=== PATIENT | male | born 1970 | race Hispanic/Latino ===

== ENCOUNTER 2021-01-13 09:57 | Emergency (ER) | payer OTHER ==
[~2021-01-13] VITALS: Ht 167.6 cm; Wt 84.5 kg
[2021-01-13] MEDS ORDERED: KETOROLAC TROMETHAMINE 60 MG/2 ML VIAL IM ONE (10:30)
[2021-01-13] MEDS: PREDNISONE 20 MG TAB PO SCH (10:35)
[2021-01-13] MEDS ORDERED: PREDNISONE 20 MG TAB ONE (10:35)
[2021-01-13] MEDS ORDERED: ACETAMINOPHEN-1 EAC4 PO (11:10)
[2021-01-13] MEDS ORDERED: PREDNISONE20 MG PO (11:10)
== END 2021-01-13 11:29 | disposition home or self-care (01) ==
LOC: FSED 10:08
DX: G56.02 Carpal tunnel syndrome, left upper limb (principal); L72.8 Other follicular cysts of the skin and subcutaneous tissue
CPT/HCPCS: 36415; 73130; 82948; 96372; 99283; J1885; J7512